=== PATIENT | female | born 1955 | race Caucasian/White ===

== ENCOUNTER → 2023-07-25 09:58 | Outpatient (BNVA) | payer MEDICARE, SELFPAY | PROVIDERS: PCP Clinical Nurse Specialist Adult Health; Visit Provider Clinical Nurse Specialist Adult Health | DX: Z00.00 Encounter for general adult medical examination without abnormal findings (principal); K14.8 Other diseases of tongue | CPT/HCPCS: 80053; 81000; 85025 ==

== ENCOUNTER → 2023-09-24 08:54 | Outpatient (BNVA) | payer MEDICARE, SELFPAY | PROVIDERS: PCP Clinical Nurse Specialist Adult Health; Referring Provider Clinical Nurse Specialist Adult Health; Visit Provider Nurse Practitioner Family | DX: L57.0 Actinic keratosis (principal); L57.8 Other skin changes due to chronic exposure to nonionizing radiation; L81.4 Other melanin hyperpigmentation; D22.5 Melanocytic nevi of trunk | CPT/HCPCS: 17004; 99203 ==

== ENCOUNTER → 2024-07-27 13:06 | Outpatient (BNVA) | payer MEDICARE, SELFPAY | PROVIDERS: PCP Clinical Nurse Specialist Adult Health; Visit Provider Family Medicine | DX: Z00.00 Encounter for general adult medical examination without abnormal findings (principal) | CPT/HCPCS: 80053; 80061; 85025 ==

== ENCOUNTER → 2024-12-02 14:43 | Outpatient (BNVA) | payer MEDICARE, SELFPAY | PROVIDERS: PCP Family Medicine; Visit Provider Nurse Practitioner Family | DX: L57.8 Other skin changes due to chronic exposure to nonionizing radiation (principal); L81.4 Other melanin hyperpigmentation; D22.5 Melanocytic nevi of trunk; L82.1 Other seborrheic keratosis; D48.5 Neoplasm of uncertain behavior of skin; L57.0 Actinic keratosis | CPT/HCPCS: 11102; 17000; 99213 ==

== ENCOUNTER → 2024-12-29 07:56 | Outpatient (BNVA) | payer MEDICARE, SELFPAY | PROVIDERS: PCP Family Medicine; Visit Provider Dermatology | DX: C44.729 Squamous cell carcinoma of skin of left lower limb, including hip (principal); D48.5 Neoplasm of uncertain behavior of skin | CPT/HCPCS: 17000; 17262 ==

== ENCOUNTER → 2025-01-28 10:09 | Outpatient (BNVA) | payer MEDICARE, SELFPAY | PROVIDERS: PCP Family Medicine; Visit Provider Dermatology | DX: C44.729 Squamous cell carcinoma of skin of left lower limb, including hip (principal) | CPT/HCPCS: 99213 ==

== ENCOUNTER → 2025-02-24 07:42 | Outpatient (BNVA) | payer MEDICARE, SELFPAY | PROVIDERS: PCP Family Medicine; Visit Provider Surgery | DX: R19.7 Diarrhea, unspecified (principal); Z80.0 Family history of malignant neoplasm of digestive organs; R14.0 Abdominal distension (gaseous) | CPT/HCPCS: 99204 ==

== ENCOUNTER 2025-02-25 09:30 | Outpatient (CLI) | payer MEDICARE, SELFPAY ==
[2025-02-25 11:06] LABS: C.Diff PCR (Lab) NEGATIVE (Negative)
== END 2025-02-25 09:31 | disposition home or self-care (01) ==
PROVIDERS: PCP Family Medicine; Visit Provider Surgery
DX: K52.9 Noninfective gastroenteritis and colitis, unspecified (principal)
CPT/HCPCS: 83630; 83993; 87045; 87177; 87209; 87427; 87449; 87493

== ENCOUNTER 2025-03-17 08:44 | Day surgery (SDC) | payer MEDICARE, SELFPAY ==
[2025-03-17 09:05] VITALS: BP 139/76; PULSE 79; RESP 18; O2SAT 98; BMI 24.7
[2025-03-17] MEDS: sodium chloride 0.9% 1,000 ML 15 ML IV (09:21)
--- NOTE | 2025-03-17 09:36 | W.PM.OPSUD ---
Surgery/Procedure H&P Update DATE OF PROCEDURE: March 17, 2025 DATE H&P PERFORMED: 02/24/25 H&P UPDATE INFORMATION: I have reviewed H&P completed within last 30 days, I have examined patient prior to procedure, No changes to prior documentation, Changes to prior documentation as noted here and Risks and benefits of the procedure reviewed PLANNED PROCEDURE: Operation Date: 03/17/25 10:35 Proposed Procedures p EGD 60566 [id number] G0105 Z12.11 R19.7 K21.9(Not Applicable) - Jim Bazzi MD s Colonoscopy(Not Applicable) - Jim Bazzi MD
--- NOTE | 2025-03-17 10:15 | ANES.PREANE2 ---
Pre-Anesthetic Assessment Height/Weight: Height 1.6 m Weight 63.503 kg Pulse Resp BP Pulse Ox O2 Del Method 79 18 139/76 98 Room Air 03/17/25 09:05 03/17/25 09:05 03/17/25 09:05 03/17/25 09:05 03/17/25 09:05 Operation Date: 03/17/25 10:35 Proposed Procedures p EGD 76700 [id number] G0105 Z12.11 R19.7 K21.9(Not Applicable) - Jim Bazzi MD s Colonoscopy(Not Applicable) - Jim Bazzi MD Familial anesthetic complications: None Was Beta Chris taken within 24 hours: N/A Was Clonidine taken within 24 hours: N/A Last intake: Intake Last Liquid Date 03/16/25 Last Liquid Time 22:00 Last Solid Date 03/15/25 Last Solid Time 18:00 Social Tobacco and No alcohol 0.5 pack(s) per day Exam alert, oriented x 3, clear to auscultation bilaterally and regular rate & rhythm Airway Submandibular: within normal limits Cervical ROM: within normal limits Mallampati: Class II Dentition: full History/ROS No significant history except as noted and No significant complaints Pulmonary None reported CV/HEM Coronary Artery Disease None reported Hepatic None reported GI Diarrhea Metabolic None reported Musc/skel Lower Back Pain Neuropsych None reported Anesthetic Plan ASA status: 3 Anesthesia: Anesthesia Evaluation, General and MAC Risk of > 500 ml blood loss (7ml/kg in children): No Medications/Allergies Home Medications ?Medication ?Instructions ?Recorded ?Confirmed ?Last Taken ?Type ondansetron 8 mg disintegrating 8 mg PO Q8H PRN nausea and 02/24/25 03/15/25 Unknown Rx tablet vomiting #3 tabs Allergies Allergy/AdvReac Type Severity Reaction Status Date / Time No Known Allergies Allergy Verified 03/15/25 12:46 Current Medications Generic Name Dose Route Start Last Admin Trade Name Freq PRN Reason Stop Dose Admin Sodium Chloride 1,000 mls @ 15 mls/hr 03/17/25 08:52 03/17/25 09:21 Sodium Chloride 0.9% IV 03/18/25 08:51 15 mls/hr .Q24H PRN Administration COLONOSCOPY FLUIDS PFSH Anesthesia Medical History Tobacco dependence Skin lesions Encounter for wellness examination Hx of cancer of uterus Surgical History Hx of hysterectomy Family History Other Alzheimer's dementia Hypertension Denies family history of Diabetes Clotting disorder Anesthesia complication Bleeding disorder Social History Smoking and tobacco/nicotine status: never used tobacco/nicotine Alcohol intake: never Substance/Drug Use: never Marital status: Single Number of children: 0 Current occupational status: retired
[2025-03-17 11:12] VITALS: BP 124/49; PULSE 80; RESP 16; TEMP 36.4; O2SAT 94
[2025-03-17 11:53] VITALS: BP 125/73; PULSE 79; RESP 16; O2SAT 97
--- NOTE | 2025-03-17 11:53 | ANE.PACU2 ---
Inpatient post-anesthesia follow up: Airway intact: Yes Vital signs: Temperature 97.6 F Pulse Rate 79 Respiratory Rate 16 Blood Pressure 125/73 Pulse Oximetry 97 Oxygen Delivery Me thod Room Air Oxygen Flow Rate Fraction of Inspir ed Oxygen Hydration adequate: Yes Nausea and vomiting: No Pain level: 2 Mental status: Baseline
== END 2025-03-17 11:53 | disposition home or self-care (01) ==
PROVIDERS: PCP Family Medicine; Visit Provider Surgery
PROC: 0DJ08ZZ Inspection of Upper Intestinal Tract, Via Natural or Artificial Opening Endoscopic (ICD-10-PCS; principal; 2025-03-17 10:35)
PROC: 0DJD8ZZ Inspection of Lower Intestinal Tract, Via Natural or Artificial Opening Endoscopic (ICD-10-PCS; CPT 45378; 2025-03-17 10:35)
DX: Z12.11 Encounter for screening for malignant neoplasm of colon (principal); K29.50 Unspecified chronic gastritis without bleeding; K21.9 Gastro-esophageal reflux disease without esophagitis; I25.10 Atherosclerotic heart disease of native coronary artery without angina pectoris; K52.9 Noninfective gastroenteritis and colitis, unspecified; F17.210 Nicotine dependence, cigarettes, uncomplicated
CPT/HCPCS: 43239; 45380; 88305; J2704; J7030; J9999

== ENCOUNTER → 2025-03-30 11:09 | Outpatient (BNVA) | payer MEDICARE, SELFPAY | PROVIDERS: PCP Family Medicine; Visit Provider Surgery | DX: Z09 Encounter for follow-up examination after completed treatment for conditions other than malignant neoplasm (principal) | CPT/HCPCS: 99213 ==

== ENCOUNTER → 2025-04-13 15:30 | Outpatient (BNVA) | payer MEDICARE, SELFPAY | PROVIDERS: PCP Family Medicine; Visit Provider Family Medicine | DX: N39.0 Urinary tract infection, site not specified (principal) | CPT/HCPCS: 81000; 87086 ==